=== PATIENT | female | born 1980 | race Caucasian/White ===

== ENCOUNTER 2017-09-16 01:10 | Emergency (ER) | payer OTHER ==
[~2017-09-16] VITALS: Ht 165.1 cm; Wt 80.7 kg
[2017-09-16 01:46] LABS: ABSOLUTE BASOPHILS 0.1 thou/uL (0.0-0.2); ABSOLUTE EOSINOPHILS 0.2 thou/uL (0.0-0.7); ABSOLUTE LYMPHOCYTES 3.4 thou/uL (0.8-5.3); ABSOLUTE MONOCYTES 0.5 thou/uL (0.0-1.2); ABSOLUTE NEUTROPHILS 9.2 thou/uL (1.6-8.1); BASOPHILS 0.6 %; EOSINOPHILS 1.7 %; HEMATOCRIT 43.6 % (37.0-47.0); HEMOGLOBIN 14.8 gm/dL (12.0-15.0); LYMPHOCYTES 25.2 %; MCH 30.7 pg (26.0-34.0); MCV 90.3 fL (80.0-100.0); MONOCYTES 4.1 %; MPV 8.3 fl. (7.2-11.1); NUCLEATED RBCS 0 /100WBC; PLATELET COUNT* 363 thou/uL (150-400); POLYS 68.4 %; RBC 4.83 mil/uL (4.20-5.00); RDW-CV 12.8 % (10.5-14.5); WBC 13.4 thou/uL (4.0-11.0)
[2017-09-16 02:00] LABS: CREATININE 0.9 mg/dL (0.6-1.3); POTASSIUM 3.5 mmol/L (3.5-5.1)
[2017-09-16 02:04] LABS: ALBUMIN 3.6 g/dL (3.4-5.0); TOTAL BILIRUBIN 0.5 mg/dL (<0.1-1.0); TOTAL PROTEIN 7.1 g/dL (6.4-8.2)
[2017-09-16 02:18] LABS: URINE BILIRUBIN NEGATIVE (Negative); URINE BLOOD NEGATIVE (Negative); URINE CLARITY CLEAR; URINE COLOR YELLOW; URINE GLUCOSE-RANDOM NEGATIVE (Negative); URINE KETONES NEGATIVE (Negative); URINE LEUKOCYTES-REFLEX NEGATIVE (Negative); URINE NITRITE-REFLEX NEGATIVE (Negative); URINE PROTEIN NEGATIVE (Negative); URINE SPECIFIC GRAVITY 1.015 (1.005-1.030); URINE UROBILINOGEN 0.2 E.U./dl (0.2-1.0)
[2017-09-16] MEDS ORDERED: PHENERGAN 25 MG25 M1 PO (04:02)
[2017-09-16] MEDS ORDERED: NORCO 5-325 TA1 EACH PO (04:02)
[2017-09-16 04:20] VITALS: BP 123/79
== END 2017-09-16 04:35 | disposition home or self-care (01) ==
LOC: M.ERS 01:10
PROVIDERS: Personal Emergency Response Attendant
DX: R10.9 Unspecified abdominal pain (principal)

== ENCOUNTER 2017-12-08 18:51 | Emergency (ER) | payer OTHER ==
[~2017-12-08] VITALS: Ht 165.1 cm; Wt 81.6 kg
[~2017-12-08 18:51] MED LIST: NORCO 5-325 TA1 EACH PO; PHENERGAN 25 MG25 M1 PO
[2017-12-08] MEDS ORDERED: ROBAXIN500 MG PO (19:04)
[2017-12-08 19:31] LABS: ABSOLUTE BASOPHILS 0.1 thou/uL (0.0-0.2); ABSOLUTE EOSINOPHILS 0.2 thou/uL (0.0-0.7); ABSOLUTE LYMPHOCYTES 2.7 thou/uL (0.8-5.3); ABSOLUTE MONOCYTES 0.9 thou/uL (0.0-1.2); ABSOLUTE NEUTROPHILS 8.6 thou/uL (1.6-8.1); BASOPHILS 0.6 %; EOSINOPHILS 1.3 %; HEMATOCRIT 43.8 % (37.0-47.0); HEMOGLOBIN 14.7 gm/dL (12.0-15.0); LYMPHOCYTES 21.8 %; MCH 30.6 pg (26.0-34.0); MCHC 33.6 g/dL (28.0-37.0); MCV 91.2 fL (80.0-100.0); MONOCYTES 7.1 %; MPV 8.5 fl. (7.2-11.1); NUCLEATED RBCS 0 /100WBC; PLATELET COUNT* 324 thou/uL (150-400); POLYS 69.2 %; RDW-CV 12.9 % (10.5-14.5); WBC 12.5 thou/uL (4.0-11.0)
[2017-12-08 19:36] LABS: CALCIUM 9.1 mg/dL (8.5-10.1); CREATININE 0.8 mg/dL (0.6-1.3); POTASSIUM 3.7 mmol/L (3.5-5.1)
[2017-12-08 19:40] LABS: ALBUMIN 3.7 g/dL (3.4-5.0); TOTAL BILIRUBIN 0.8 mg/dL (<0.1-1.0); TOTAL PROTEIN 7.7 g/dL (6.4-8.2)
[2017-12-08 19:51] LABS: URINE BILIRUBIN NEGATIVE (Negative); URINE BLOOD NEGATIVE (Negative); URINE CLARITY CLEAR; URINE COLOR YELLOW; URINE GLUCOSE-RANDOM NEGATIVE (Negative); URINE KETONES TRACE (Negative); URINE LEUKOCYTES-REFLEX NEGATIVE (Negative); URINE NITRITE-REFLEX NEGATIVE (Negative); URINE PROTEIN NEGATIVE (Negative)
[2017-12-08 19:53] LABS: CRYSTALS None Seen /LPF (None Seen)
[2017-12-08 20:02] LABS: AMP/METHAMP Negative (Negative); BARBITURATES Negative (Negative); BENZODIAZEPINES Negative (Negative); COCAINE Negative (Negative); METHADONE Negative (Negative); OPIATES Negative (Negative); PCP Negative (Negative); THC Negative (Negative)
[2017-12-08] MEDS ORDERED: LEVAQUIN 500 M500 M5 PO (22:44)
[2017-12-08] MEDS ORDERED: PHENERGAN 25 MG25 MG PO (22:44)
[2017-12-08] MEDS ORDERED: NORCO 5-325 TA1 EAC1 PO (22:44)
[2017-12-08] MEDS ORDERED: LEVAQUIN 750 M750 MG PO ×2 (22:44→22:46)
[2017-12-08 23:06] VITALS: BP 127/91
== END 2017-12-08 23:06 | disposition home or self-care (01) ==
LOC: M.ERS 18:51
PROVIDERS: Nurse Practitioner
DX: R10.11 Right upper quadrant pain (principal); R10.31 Right lower quadrant pain; M54.9 Dorsalgia, unspecified

== ENCOUNTER 2020-01-02 21:32 | Emergency (ER) | payer OTHER ==
[~2020-01-02] VITALS: Ht 165.1 cm; Wt 86.2 kg
[~2020-01-02 21:32] MED LIST changes: +LEVAQUIN 500 M500 M5 PO; +LEVAQUIN 750 M750 MG PO; +NORCO 5-325 TA1 EAC1 PO; +PHENERGAN 25 MG25 MG PO; +ROBAXIN500 MG PO
[2020-01-02] MEDS ORDERED: PAXIL 20 MG TAB20 MG PO (21:41)
[2020-01-02] MEDS ORDERED: CLONAZEPAM 0.50.5 M1 PO (21:42)
[2020-01-02] MEDS ORDERED: TRAZODONE HCL100 MG PO (21:42)
[2020-01-02 22:12] LABS: BE -2.2 mmol/L (-2 to +3); PCO2 35.8 mmHg (35.0-45.0); pH 7.405 (7.340-7.450)
[2020-01-02 22:13] LABS: ABSOLUTE BASOPHILS 0.1 thou/uL (0.0-0.2); ABSOLUTE EOSINOPHILS 0.2 thou/uL (0.0-0.7); ABSOLUTE LYMPHOCYTES 2.8 thou/uL (0.8-5.3); ABSOLUTE MONOCYTES 0.4 thou/uL (0.0-1.2); ABSOLUTE NEUTROPHILS 3.1 thou/uL (1.6-8.1); BASOPHILS 1.4 %; EOSINOPHILS 2.6 %; HEMATOCRIT 41.1 % (37.0-47.0); HEMOGLOBIN 14.2 gm/dL (12.0-15.0); LYMPHOCYTES 42.9 %; MCH 31.4 pg (26.0-34.0); MCHC 34.7 g/dL (28.0-37.0); MCV 90.5 fL (80.0-100.0); MONOCYTES 5.4 %; MPV 7.5 fl. (7.2-11.1); NUCLEATED RBCS 0 /100WBC; PLATELET COUNT* 361 thou/uL (150-400); POLYS 47.7 %; RBC 4.54 mil/uL (4.20-5.00); RDW-CV 13.4 % (10.5-14.5); WBC 6.5 thou/uL (4.0-11.0)
[2020-01-02 22:20] LABS: CALCIUM 7.9 mg/dL (8.5-10.1); CREATININE 0.8 mg/dL (0.6-1.3); POTASSIUM 3.2 mmol/L (3.5-5.1)
[2020-01-02 22:24] LABS: ALBUMIN 3.5 g/dL (3.4-5.0); TOTAL BILIRUBIN 0.3 mg/dL (<0.1-1.0); TOTAL PROTEIN 7.4 g/dL (6.4-8.2)
[2020-01-02 22:53] VITALS: BP 145/98
== END 2020-01-02 22:55 | disposition home or self-care (01) ==
LOC: M.ERS 21:32
PROVIDERS: Personal Emergency Response Attendant
DX: B34.9 Viral infection, unspecified (principal); Z71.1 Person with feared health complaint in whom no diagnosis is made; R51 Headache; R06.02 Shortness of breath; R07.9 Chest pain, unspecified; R42 Dizziness and giddiness; Z90.89 Acquired absence of other organs; Z79.899 Other long term (current) drug therapy

== ENCOUNTER 2021-04-09 00:43 | Inpatient (IN) | payer OTHER ==
[2021-04-09] VITALS (15 sets, daily range): BP systolic 118–163; BP diastolic 79–120
[~2021-04-09] VITALS: Ht 165.1 cm; Wt 81.6 kg
[~2021-04-09 00:43] MED LIST changes: +CLONAZEPAM 0.50.5 M1 PO; +PAXIL20 MG PO; +TRAZODONE HCL100 MG PO
[2021-04-09] MEDS ORDERED: ADDERALL 20 MG20 M1 PO (01:00)
[2021-04-09 01:28] LABS: ABSOLUTE BASOPHILS 0.1 thou/uL (0.0-0.2); ABSOLUTE EOSINOPHILS 0.1 thou/uL (0.0-0.7); ABSOLUTE LYMPHOCYTES 2.7 thou/uL (0.8-5.3); ABSOLUTE MONOCYTES 0.4 thou/uL (0.0-1.2); ABSOLUTE NEUTROPHILS 2.7 thou/uL (1.6-8.1); BASOPHILS 1.4 %; EOSINOPHILS 1.1 %; HEMATOCRIT 43.7 % (37.0-47.0); HEMOGLOBIN 15.1 gm/dL (12.0-15.0); LYMPHOCYTES 45.1 %; MCH 33.4 pg (26.0-34.0); MCHC 34.4 g/dL (28.0-37.0); MCV 97.1 fL (80.0-100.0); MONOCYTES 6.6 %; MPV 7.4 fl. (7.2-11.1); NUCLEATED RBCS 0 /100WBC; PLATELET COUNT* 301 thou/uL (150-400); POLYS 45.8 %; RDW-CV 14.7 % (10.5-14.5); WBC 5.9 thou/uL (4.0-11.0)
[2021-04-09 02:08] LABS: CALCIUM 8.1 mg/dL (8.5-10.1); CREATININE 0.8 mg/dL (0.6-1.3); POTASSIUM 3.8 mmol/L (3.5-5.1)
[2021-04-09 02:13] LABS: ALBUMIN 3.3 g/dL (3.4-5.0); TOTAL BILIRUBIN 0.4 mg/dL (<0.1-1.0)
[2021-04-09 04:37] LABS: URINE BILIRUBIN NEGATIVE (Negative); URINE BLOOD NEGATIVE (Negative); URINE CLARITY CLEAR; URINE COLOR YELLOW; URINE GLUCOSE-RANDOM NEGATIVE (Negative); URINE KETONES NEGATIVE (Negative); URINE LEUKOCYTES-REFLEX NEGATIVE (Negative); URINE NITRITE-REFLEX NEGATIVE (Negative); URINE PROTEIN NEGATIVE (Negative); URINE SPECIFIC GRAVITY <= 1.005 (1.005-1.030); URINE UROBILINOGEN 0.2 E.U./dl (0.2-1.0)
[2021-04-09 04:47] LABS: AMP/METHAMP POSITIVE (Negative); BARBITURATES Negative (Negative); BENZODIAZEPINES Negative (Negative); COCAINE Negative (Negative); METHADONE Negative (Negative); OPIATES Negative (Negative); PCP Negative (Negative); THC Negative (Negative)
[2021-04-09 05:58] LABS: INR 1.1; PROTIME 11.4 Seconds (9.20-11.50)
--- NOTE | 2021-04-09 14:21 | EKG ---
[place] [address] ELECTROCARDIOGRAM REPORT Name: CHALO ARROYO Room: [address] [place] ..#: [id number] Admission: 04/09/21 Attend Phys: Michael Gama Discharge: Date of : 84 Date of Service: 04/09/21 0506 Report #: [id number] THIS REPORT FOR: //name// [facility] ED Test Date: 2021-04-09 Test Time: 05:06:09 Pat Name: CHALO ARROYO Department: Room: [facility] Gender: F Nurses Assistant: : 1980 Requested By: Anuradha Mcconnell Order Number: [id number] MD: Baltazar Gil Measurements Intervals [place] Rate: 69 P: 27 RI: 122 QRS: 7 QRSD: 90 T: 19 QT: 428 QTc: 459 Interpretive Statements Sinus rhythm No previous ECG available for comparison Electronically Signed On 04-09-2021 14:20:57 CDT by Baltazar Gil [email or web address] <ELECTRONICALLY SIGNED> By: Baltazar Gil MD, [facility] 04/09/21 1420 0506 0506 Baltazar Gil MD, [facility] /EPI
== END 2021-04-09 18:30 | disposition home or self-care (01) | DRG 87 ==
LOC: M.ERS 00:43 → M.ICU 05:05 → M.TBA-ER 05:05 → M.ICU 05:26
PROVIDERS: Personal Emergency Response Attendant; ADMIT Internal Medicine; ATTEND Internal Medicine
DX: S02.85XA Fracture of orbit, unspecified, initial encounter for closed fracture (principal); S09.90XA Unspecified injury of head, initial encounter; Z90.49 Acquired absence of other specified parts of digestive tract; X58.XXXA Exposure to other specified factors, initial encounter; Y93.89 Activity, other specified; Y92.89 Other specified places as the place of occurrence of the external cause; Y99.8 Other external cause status; Z20.822 Contact with and (suspected) exposure to COVID-19

== ENCOUNTER 2021-06-07 14:32 | Emergency (ER) | payer OTHER ==
[~2021-06-07] VITALS: Ht 165.1 cm; Wt 77.6 kg
[~2021-06-07 14:32] MED LIST changes: +ADDERALL 20 MG20 M1 PO
[2021-06-07 15:18] LABS: INFLUENZA A ANTIGEN Negative (Negative); INFLUENZA B ANTIGEN Negative (Negative)
[2021-06-07] MEDS ORDERED: ZPAK PO ×2 (15:28→15:35)
[2021-06-07] MEDS ORDERED: PREDNISONE 20 M20 M1 PO ×2 (15:28→15:35)
[2021-06-07 15:36] VITALS: BP 137/90
== END 2021-06-07 15:37 | disposition home or self-care (01) ==
LOC: M.ERS 14:32
PROVIDERS: Physician Assistant
DX: J40 Bronchitis, not specified as acute or chronic (principal); Z20.822 Contact with and (suspected) exposure to COVID-19; Z90.49 Acquired absence of other specified parts of digestive tract; Z79.899 Other long term (current) drug therapy